=== PATIENT | female | born 1985 | race Caucasian/White ===

== ENCOUNTER 2020-05-29 15:53 | Emergency (ER) | payer OTHER ==
[~2020-05-29 15:53] MED LIST: MOTRIN600 MG PO; PERCOCET 5-3251 EACH PO; VOLTAREN **OUT50 MG PO
== END 2020-05-29 19:47 | disposition home or self-care (01) ==
LOC: FER 15:53
DX: S90.31XA Contusion of right foot, initial encounter (principal); W20.8XXA Other cause of strike by thrown, projected or falling object, initial encounter; Y92.009 Unspecified place in unspecified non-institutional (private) residence as the place of occurrence of the external cause
CPT/HCPCS: 73630; J1885

== ENCOUNTER 2020-06-29 | Emergency (ER) | payer OTHER ==
[2020-06-29 01:33] LABS: BASOPHIL 0.5 % (0-2); HCT 36.7 % (37.0-47.0); HGB 12.7 g/dl (12.5-16.0); LYMPHOCYTE 27.1 % (15-48); MCH 29.7 pg (25.0-31.0); MCHC 34.6 g/dL (32.0-36.0); MCV 85.9 fL (78.0-100.0); MONOCYTE 9.6 % (0-12); MPV 11.7 fL (6.0-9.5); NEUTROPHIL 59.4 % (41-80); NRBC 0; PLT 222 K/uL (150-400); RBC 4.27 M/uL (4.20-5.40); RDW 12.1 % (11.5-14.0); WBC 8.5 K/uL (4.0-10.5)
[2020-06-29 01:51] LABS: ALBUMIN 3.6 g/dL (3.4-5.0); BILIRUBIN - TOTAL 0.4 mg/dL (0.2-1.0); BUN/CREAT RATIO (CALC) 16.4 RATIO; CREATININE 0.61 mg/dL (0.51-0.95); GLOBULIN (CALCULATION) 4.1 g/dL; POTASSIUM 3.6 mmol/L (3.5-5.1); TOTAL PROTEIN 7.7 g/dL (6.4-8.2)
[2020-06-29 02:10] LABS: CORONAVIRUS 2019 SARS-COV-2 NEGATIVE (NEGATIVE); INFLUENZA A NAA NEGATIVE (NEGATIVE)
[2020-06-29] MEDS ORDERED: MEDROL 4MG DOSEP4 MG PO (02:59)
[2020-06-29] MEDS ORDERED: ZPAK PO (02:59)
[2020-06-29] MEDS ORDERED: ROBITUSSIN W/COD5 ML PO (02:59)
== END 2020-06-29 03:20 | disposition home or self-care (01) ==
LOC: FER
PROVIDERS: Emergency Medicine Emergency Medical Services
DX: J18.9 Pneumonia, unspecified organism (principal); Z88.0 Allergy status to penicillin; Z88.8 Allergy status to other drugs, medicaments and biological substances; Z20.822 Contact with and (suspected) exposure to COVID-19
CPT/HCPCS: 36415; 71045; 80053; 84484; 85025; 85379; J1100; J1885; U0002

== ENCOUNTER 2020-07-24 12:35 | Emergency (ER) | payer OTHER ==
[~2020-07-24 12:35] MED LIST changes: +MEDROL 4MG DOSEP4 MG PO; +ROBITUSSIN W/COD5 ML PO; +ZPAK PO
[2020-07-24] MEDS ORDERED: ETODOLAC500 MG PO (14:37)
== END 2020-07-24 15:02 | disposition home or self-care (01) ==
LOC: FER 12:35
DX: M79.621 Pain in right upper arm (principal); N60.01 Solitary cyst of right breast; E66.9 Obesity, unspecified; F17.200 Nicotine dependence, unspecified, uncomplicated
CPT/HCPCS: 99284

== ENCOUNTER 2021-01-24 19:54 | Emergency (ER) | payer OTHER ==
[~2021-01-24 19:54] MED LIST changes: +ETODOLAC500 MG PO
== END 2021-01-24 22:57 | disposition home or self-care (01) ==
LOC: FER 19:54
DX: B34.9 Viral infection, unspecified (principal); F17.210 Nicotine dependence, cigarettes, uncomplicated; Z88.0 Allergy status to penicillin; Z88.8 Allergy status to other drugs, medicaments and biological substances; Z20.822 Contact with and (suspected) exposure to COVID-19
CPT/HCPCS: 99283; U0002

== ENCOUNTER 2021-03-09 23:42 | Emergency (ER) | payer OTHER ==
[2021-03-10 01:04] LABS: BILIRUBIN NEGATIVE (NEGATIVE); BLOOD NEGATIVE Ery/uL (NEGATIVE); CLARITY CLEAR (CLEAR); COLOR YELLOW (YELLOW); GLUCOSE (U) NORMAL (NORMAL); LEUKOCYTES 1+ Leu/uL (NEGATIVE); NITRITE POSITIVE (NEGATIVE); PROTEIN NEGATIVE (NEGATIVE); SPECIFIC GRAVITY 1.015 (1.001-1.030)
[2021-03-10 01:10] LABS: BACTERIA 2+
[2021-03-10] MEDS ORDERED: MACROBID100 MG PO (02:36)
== END 2021-03-10 03:00 | disposition home or self-care (01) ==
LOC: FER 23:42
PROVIDERS: Emergency Medicine
DX: N39.0 Urinary tract infection, site not specified (principal); M54.50 Low back pain, unspecified; F17.200 Nicotine dependence, unspecified, uncomplicated; Z88.0 Allergy status to penicillin; Z88.8 Allergy status to other drugs, medicaments and biological substances
CPT/HCPCS: 81001; 87076; 87088; 87186; 99283; J1885

== ENCOUNTER 2022-01-18 20:12 | Emergency (ER) | payer OTHER ==
[~2022-01-18 20:12] MED LIST changes: +MACROBID100 MG PO
[2022-01-18 21:23] LABS: INFLUENZA A NAA NEGATIVE (NEGATIVE)
[2022-01-18 21:25] LABS: CORONAVIRUS 2019 SARS-COV-2 POSITIVE (NEGATIVE)
== END 2022-01-19 00:07 | disposition left against medical advice (07) ==
LOC: FER 20:12
PROVIDERS: Emergency Medicine
DX: U07.1 COVID-19 (principal); Z53.21 Procedure and treatment not carried out due to patient leaving prior to being seen by health care provider
CPT/HCPCS: U0002